=== PATIENT | female | born 1990 | race Caucasian/White ===

== ENCOUNTER 2017-10-30 15:56 | Emergency (ER) | payer OTHER, MEDICAID ==
[~2017-10-30] VITALS: Ht 157.5 cm; Wt 59.9 kg
[~2017-10-30 15:56] MED LIST: AFRIN15 ML NS; ATIVAN0.5 MG PO; AUGMENTIN 875875 MG; AZITHROMYCIN 2250 MG PO; CIPRODEX OTIC7.5 ML OT; FLONASE; MOBIC7.5 MG PO; NOHOMEMEDICATIONS; PREDNISONE 20 M20 MG PO; PRENATAL 1 PLU1 EACH PO; PROAIR HFA8.5 GM IH; ZANTAC 150MG T150 M1 PO; ZOFRAN ODT4 MG PO; ZPAK PO
[2017-10-30] MEDS ORDERED: KEFLEX500 M1 PO (16:53)
[2017-10-30 17:00] VITALS: BP 131/90
== END 2017-10-30 17:01 | disposition home or self-care (01) ==
LOC: M.ERS 15:56
DX: N64.4 Mastodynia (principal); Z98.890 Other specified postprocedural states; F41.9 Anxiety disorder, unspecified

== ENCOUNTER 2019-06-06 14:07 | Emergency (ER) | payer BC, OTHER, MEDICAID ==
[~2019-06-06] VITALS: Ht 162.6 cm; Wt 59.0 kg
[~2019-06-06 14:07] MED LIST changes: +KEFLEX500 M1 PO
[2019-06-06 14:33] LABS: ABSOLUTE BASOPHILS 0.1 thou/uL (0.0-0.2); ABSOLUTE EOSINOPHILS 0.5 thou/uL (0.0-0.7); ABSOLUTE LYMPHOCYTES 2.5 thou/uL (0.8-5.3); ABSOLUTE MONOCYTES 0.6 thou/uL (0.0-1.2); BASOPHILS 0.5 %; EOSINOPHILS 4.3 %; HEMATOCRIT 38.7 % (37.0-47.0); HEMOGLOBIN 13.8 gm/dL (12.0-15.0); LYMPHOCYTES 23.8 %; MCH 29.9 pg (26.0-34.0); MCHC 35.6 g/dL (28.0-37.0); MCV 84.1 fL (80.0-100.0); MONOCYTES 5.3 %; MPV 7.9 fl. (7.2-11.1); NUCLEATED RBCS 0 /100WBC; PLATELET COUNT* 359 thou/uL (150-400); POLYS 66.1 %; RBC 4.61 mil/uL (4.20-5.00); RDW-CV 12.3 % (10.5-14.5); WBC 10.6 thou/uL (4.0-11.0)
[2019-06-06 14:41] LABS: URINE BILIRUBIN NEGATIVE (Negative); URINE BLOOD 3+ (Negative); URINE CLARITY CLOUDY; URINE COLOR RED; URINE GLUCOSE-RANDOM NEGATIVE (Negative); URINE KETONES TRACE (Negative); URINE LEUKOCYTES-REFLEX NEGATIVE (Negative); URINE PROTEIN 3+ (Negative); URINE SPECIFIC GRAVITY 1.025 (1.005-1.030)
[2019-06-06 14:42] LABS: URINE NITRITE-REFLEX POSITIVE (Negative)
[2019-06-06 14:42] LABS: CALCIUM 9.2 mg/dL (8.5-10.1); CREATININE 0.7 mg/dL (0.6-1.3); POTASSIUM 3.4 mmol/L (3.5-5.1)
[2019-06-06 14:47] LABS: ALBUMIN 3.7 g/dL (3.4-5.0); TOTAL BILIRUBIN 0.4 mg/dL (<0.1-1.0); TOTAL PROTEIN 8.4 g/dL (6.4-8.2)
[2019-06-06 14:51] LABS: MUCUS None Seen strn/LPF (None Seen); URINE RBC >20 Many /HPF (0-2)
[2019-06-06 14:52] LABS: CASTS None Seen /LPF (None Seen); SQUAMOUS 0-3 Few /LPF (0-3)
[2019-06-06 14:53] LABS: BACTERIA-REFLEX 1-9 Few /HPF (None Seen); CRYSTALS None Seen /LPF (None Seen); URINE WBC-REFLEX None Seen /HPF (0-5)
[2019-06-06 17:31] VITALS: BP 127/80
== END 2019-06-06 17:33 | disposition home or self-care (01) ==
LOC: M.ERS 14:07
PROVIDERS: Physician Assistant
DX: O20.0 Threatened abortion (principal); F41.9 Anxiety disorder, unspecified; Z3A.01 Less than 8 weeks gestation of pregnancy; Z90.89 Acquired absence of other organs

== ENCOUNTER 2021-10-18 13:14 | Emergency (ER) | payer OTHER, MEDICAID ==
[~2021-10-18] VITALS: Ht 162.6 cm; Wt 65.8 kg
[2021-10-18] MEDS ORDERED: EPIPEN 2-P0.3 MG/0.3 IM (14:50)
[2021-10-18] MEDS ORDERED: PREDNISONE 20 M20 M1 PO (14:50)
[2021-10-18 15:24] VITALS: BP 98/55
== END 2021-10-18 15:26 | disposition home or self-care (01) ==
LOC: M.ERS 13:14
DX: T78.1XXA Other adverse food reactions, not elsewhere classified, initial encounter (principal); F41.9 Anxiety disorder, unspecified; E03.9 Hypothyroidism, unspecified; Z91.018 Allergy to other foods; Z96.22 Myringotomy tube(s) status; Z90.89 Acquired absence of other organs; X58.XXXA Exposure to other specified factors, initial encounter